=== PATIENT | female | born 1990 | race Caucasian/White ===

== ENCOUNTER 2020-07-14 15:09 | Emergency (ER) | payer SELFPAY ==
[2020-07-14 15:14] VITALS: BP 131/87; PULSE 92; RESP 16; TEMP 36.6; O2SAT 99; BMI 42.9
--- NOTE | 2020-07-14 15:39 | W.ED.EXTPRO ---
HPI - Extremity Problem General: Chief complaint: Extremity Problem,Nontraumatic Stated complaint: PAIN IN LEGS Time Seen by Provider: 07/14/20 15:24 Source: patient Mode of arrival: ambulatory Limitations: no limitations History of Present Illness: HPI Narrative: 30-year-old female who has a history of diabetes. She states she does not check her blood sugars and does not have any insulin due to she states not having any money. States over the last week she has been having burning pain in both her legs. She denies any recent long trips and has no risk factors for DVT. She states the pain is constant rates it a 3 out of 10. Denies any worsening or improving factors. Associated symptoms: Deny chest pain, fever(s) or rash Review of Systems Const: Denies: fever(s), chills, body aches or change in appetite Eyes: Denies: blurry vision or eye discomfort ENMT: Denies: throat pain or dental pain Card: Denies: chest pain Resp: Denies: dyspnea GI: Denies: abdominal pain, nausea, vomiting or diarrhea : Denies: dysuria Musc: Reports: extremity pain Skin/Breast: Denies: rash Neuro: Denies: headache(s) Psych: Denies: depression Win/Lymph: Denies: easy bruising All/Imm: Denies: urticaria Physical Exam Const: COMMON NORMALS: no acute distress, patient oriented x3 and healthy appearing HENMT: COMMON NORMALS: normocephalic and atraumatic HEAD & SCALP: normocephalic and atraumatic Eye: COMMON NORMALS: Equal, round and reactive pupils present and EOMs intact bilaterally PUPIL: Yes Equal, round and reactive pupils present Neck/C-Spine: COMMON NORMALS: full ROM and supple Chest: COMMONS NORMALS: normal inspection of the chest and normal palpation of entire chest wall Resp: COMMON NORMALS: normal respiratory effort, No retractions, No use of accessory muscles and clear to auscultation bilaterally AUSCULTATION: clear to auscultation bilaterally Cardio: COMMON NORMALS: regular rate, regular rhythm and No murmurs present (Cardio) RATE: regular rate RHYTHM: regular rhythm GI: COMMON NORMALS: Normal to inspection, nondistended, normoactive bowel sounds present, Soft to palpation, non-tender and no masses PALPATION: Yes Soft to palpation Extremity: COMMON NORMALS: normal to inspection and full ROM Neuro: COMMON NORMALS: patient oriented x3, moves all extremities and no focal motor deficits Psych: COMMON NORMALS: mental status grossly normal, Normal thought process present and cooperative THOUGHT PROCESS: Normal thought process present Skin: COMMON NORMALS: no rashes or lesions noted and no wounds GENERAL SKIN EXAM: no rashes or lesions noted Course Vital Signs: Vital signs: Vital Signs Temperature 97.8 F 07/14/20 15:14 Pulse Rate 92 07/14/20 15:14 Respiratory Rate 16 07/14/20 15:14 Blood Pressure 131/87 07/14/20 15:14 Pulse Oximetry 99 07/14/20 15:14 MDM - Extremity (Nontraumatic) MDM Narrative: Medical decision making narrative: Patient presents here with leg pain likely muscular in nature. Patient has no signs of DVTs. She is well-appearing her pain is improved after treated her glucose. Informed her is very important she controls her glucose at home. She is stable for discharge and return if worsening. She is not in DKA. Lab Data: Labs: Lab Results 07/14/20 07/14/20 07/14/20 Range/Units 15:35 16:30 16:30 WBC 9.6 (4.0-10.0) 10^3/ uL RBC 5.00 (4.1-5.3) 10^6/u L Hgb 15.0 (11.5-15.3) g/dL Hct 42.2 (37.0-47.0) % MCV 84.4 (81-99) fL MCH 30.0 (28.0-34.0) pg MCHC 35.5 (30.0-36.0) g/dL RDW 11.8 L (12.1-15.1) % Plt Count 278 (130-400) 10^3/c mm MPV 10.3 (7.4-10.4) fL Neut % (Auto) 66.3 % Lymph % (Auto) 28.4 % Montgomery % (Auto) 3.5 % Eos % (Auto) 0.8 % Baso % (Auto) 0.7 % Neut # (Auto) 6.36 (1.8-7.7) 10^3/u L Lymph # (Auto) 2.7 (0.8-4.8) 10^3/u L Montgomery # (Auto) 0.3 (0.2-0.9) 10^3/u L Eos # (Auto) 0.1 (0.0-0.8) 10^3/u L Baso # (Auto) 0.1 (0.0-0.1) 10^3/u L Nucleated RBC % (a uto) 0 % Nucleated RBCs # 0.0 /100WBC Sodium 132 L (136-145) mmol/L Potassium 3.7 (3.5-5.1) mmol/L Chloride 98 (98-107) mmol/L Carbon Dioxide 22 (22-29) mmol/L Anion Gap 15.7 (5-19) BUN 14 (6-20) mg/dL Creatinine 0.7 (0.5-0.9) mg/dL GFR Calculation 99.6 (90-130) mL/min Glucose 303 H (65-115) mg/dL POC Glucose 460 (70-110) mg/dL Calculated Osmolal ity 286 (285-295) mOsm/k g Calcium 9.5 (8.5-10.5) mg/dL Total Bilirubin 0.4 (0.15-1.2) mg/dL AST 13 (0-32) U/L ALT 19 (0-33) U/L Alkaline Phosphata se 67 (35-105) IU/L Total Protein 6.7 (6.6-8.7) g/dL Albumin 4.0 (3.5-5.2) g/dL Globulin 2.7 (1.3-4.6) g/dL 07/14/20 Range/Units 17:28 WBC (4.0-10.0) 10^3/ uL RBC (4.1-5.3) 10^6/u L Hgb (11.5-15.3) g/dL Hct (37.0-47.0) % MCV (81-99) fL MCH (28.0-34.0) pg MCHC (30.0-36.0) g/dL RDW (12.1-15.1) % Plt Count (130-400) 10^3/c mm MPV (7.4-10.4) fL Neut % (Auto) % Lymph % (Auto) % Montgomery % (Auto) % Eos % (Auto) % Baso % (Auto) % Neut # (Auto) (1.8-7.7) 10^3/u L Lymph # (Auto) (0.8-4.8) 10^3/u L Montgomery # (Auto) (0.2-0.9) 10^3/u L Eos # (Auto) (0.0-0.8) 10^3/u L Baso # (Auto) (0.0-0.1) 10^3/u L Nucleated RBC % (a uto) % Nucleated RBCs # /100WBC Sodium (136-145) mmol/L Potassium (3.5-5.1) mmol/L Chloride (98-107) mmol/L Carbon Dioxide (22-29) mmol/L Anion Gap (5-19) BUN (6-20) mg/dL Creatinine (0.5-0.9) mg/dL GFR Calculation (90-130) mL/min Glucose (65-115) mg/dL POC Glucose 293 (70-110) mg/dL Calculated Osmolal ity (285-295) mOsm/k g Calcium (8.5-10.5) mg/dL Total Bilirubin (0.15-1.2) mg/dL AST (0-32) U/L ALT (0-33) U/L Alkaline Phosphata se (35-105) IU/L Total Protein (6.6-8.7) g/dL Albumin (3.5-5.2) g/dL Globulin (1.3-4.6) g/dL Discharge Plan Discharge Patient Disposition: Home Clinical Impression: Bilateral leg pain, Hyperglycemia Condition: Stable Prescriptions: No Action Multiple Vitamins Tablet 1 tab PO DAILY RF: 0 aspirin 325 mg Tablet 325 mg PO PRN RF: 0 sertraline 100 mg tablet 100 mg PO DAILY RF: 0 Discharge Orders: Discharge Order (Routine); Ordered 07/14/20 Ordered By: Rene Sim Referrals: Nevaeh Palacios FNP-C [Family Provider] - 1-3 days Discharge Diet: Advance as tolerated Discharge Activity: Resume usual activity Patient Instructions: Arthralgia (ED), Diabetic Hyperglycemia (ED) Coding Level of Care Code ED Creative Services Writer for Chg Fwd Exam Comprehensive
[2020-07-14 15:40] LABS: Glucose Point of Care 460 mg/dL (70-110)
[2020-07-14] MEDS: insulin regular-human 100 units/1 mL 10 UNIT IVP (16:04)
[2020-07-14] MEDS: sodium chloride 0.9% 1,000 ML 999 ML IV (16:19)
[2020-07-14] MEDS: ketorolac 30 mg/mL INJ IVP (16:20)
[2020-07-14 16:44] LABS: Basophils # 0.1 10^3/uL (0.0-0.1); Basophils % 0.7 %; Eosinophils # 0.1 10^3/uL (0.0-0.8); Eosinophils % 0.8 %; Hematocrit 42.2 % (37.0-47.0); Lymphocytes # 2.7 10^3/uL (0.8-4.8); Lymphocytes % 28.4 %; Mean Corpuscular HGB Conc 35.5 g/dL (30.0-36.0); Mean Corpuscular Volume 84.4 fL (81-99); Mean Platelet Volume 10.3 fL (7.4-10.4); Monocytes # 0.3 10^3/uL (0.2-0.9); Monocytes % 3.5 %; Neutrophils # 6.36 10^3/uL (1.8-7.7); Neutrophils % 66.3 %; Nucleated Red Blood Cells % 0 %; Platelet Count 278 10^3/cmm (130-400); Red Cell Distribution Width 11.8 % (12.1-15.1); White Blood Count 9.6 10^3/uL (4.0-10.0)
[2020-07-14 17:11] LABS: Alanine Aminotransferase 19 U/L (0-33); Alkaline Phosphatase 67 IU/L (35-105); Anion Gap 15.7 (5-19); Aspartate Amino Transferase 13 U/L (0-32); Blood Urea Nitrogen 14 mg/dL (6-20); Calcium 9.5 mg/dL (8.5-10.5); Carbon Dioxide 22 mmol/L (22-29); Chloride 98 mmol/L (98-107); Globulin 2.7 g/dL (1.3-4.6); Glomerular Filtration Rate 99.6 mL/min (90-130); Glucose 303 mg/dL (65-115); Osmolality Calculated 286 mOsm/kg (285-295); Potassium 3.7 mmol/L (3.5-5.1); Sodium 132 mmol/L (136-145); Total Bilirubin 0.4 mg/dL (0.15-1.2); Total Protein 6.7 g/dL (6.6-8.7)
[2020-07-14 17:31] LABS: Glucose Point of Care 293 mg/dL (70-110)
[2020-07-14 18:25] VITALS: BP 122/99; PULSE 85; RESP 16; O2SAT 98
== END 2020-07-14 18:25 | disposition home or self-care (01) ==
PROVIDERS: Emergency Provider Emergency Medicine; Family Provider Nurse Practitioner
DX: M79.605 Pain in left leg (principal); M79.604 Pain in right leg; E11.65 Type 2 diabetes mellitus with hyperglycemia; Z79.82 Long term (current) use of aspirin
CPT/HCPCS: 12345; 36416; 80053; 82962; 85025; 96361; 96374; 96375; 99282; 99283; J1815; J1885; J7030

== ENCOUNTER → 2020-08-24 16:51 | Outpatient (BNVA) | payer SELFPAY | PROVIDERS: Family Provider Nurse Practitioner; Visit Provider Nurse Practitioner | DX: E11.65 Type 2 diabetes mellitus with hyperglycemia (principal) | CPT/HCPCS: 80048; 80061; 81003; 83036 ==

== ENCOUNTER → 2020-12-14 13:27 | Outpatient (BNVA) | payer SELFPAY | PROVIDERS: Family Provider Nurse Practitioner; PCP Nurse Practitioner Family; Visit Provider Nurse Practitioner Family | DX: E11.65 Type 2 diabetes mellitus with hyperglycemia (principal) | CPT/HCPCS: 80061; 83036; 84443; 85025 ==

== ENCOUNTER → 2021-04-03 08:31 | Outpatient (BNVA) | payer SELFPAY | PROVIDERS: Family Provider Nurse Practitioner; PCP Nurse Practitioner Family; Referring Provider Nurse Practitioner; Visit Provider Dermatology | DX: Z01.89 Encounter for other specified special examinations (principal) ==

== ENCOUNTER 2023-04-07 17:12 | Emergency (ER) | payer SELFPAY ==
[2023-04-07 17:27] VITALS: BP 138/100; PULSE 95; RESP 18; TEMP 36.6; O2SAT 98; BMI 39.1
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
== END 2023-04-07 18:17 | disposition home or self-care (01) ==
PROVIDERS: Emergency Provider Nurse Practitioner Family; PCP Nurse Practitioner Family
DX: S16.1XXA Strain of muscle, fascia and tendon at neck level, initial encounter (principal); S50.01XA Contusion of right elbow, initial encounter; M25.511 Pain in right shoulder; Z79.84 Long term (current) use of oral hypoglycemic drugs; Z79.82 Long term (current) use of aspirin; V89.2XXA Person injured in unspecified motor-vehicle accident, traffic, initial encounter
CPT/HCPCS: 72040; 73030; 73080; 99283

== ENCOUNTER → 2024-12-07 13:21 | Outpatient (BNVA) | payer BC, SELFPAY | PROVIDERS: PCP Nurse Practitioner Family; Visit Provider Emergency Medicine | DX: J02.9 Acute pharyngitis, unspecified (principal) | CPT/HCPCS: 87071; 87880 ==